=== PATIENT | female | born 1975 | race Caucasian/White ===

== ENCOUNTER 2020-12-31 09:20 | Outpatient (REF) | payer MEDICARE, MEDICAID, SELFPAY ==
--- NOTE | ~2020-12-31 | XR_ITS ---
EXAMINATION: XR SHOULDER , LEFT CLINICAL INFORMATION: Pain COMPARISON: None available at the time of this dictation. TECHNIQUE: AP external rotation, Grashey, scapular Y, and axillary views of the shoulder. FINDINGS: BONES: There is no fracture or dislocation, no osteolytic or osteoblastic lesion. JOINTS: Glenohumeral joint is properly positioned. 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 SOFT TISSUE AND INCLUDED LUNG: Soft tissue calcification adjacent to the humeral head suggesting calcific tendinitis. XR/XR shoulder LT min 2V IMPRESSION: Soft tissue calcification superior to humeral head suggesting calcific tendinitis. Mild DJD AC joint.
== END 2020-12-31 09:21 | disposition home or self-care (01) ==
LOC: HO.XRAY 09:20
PROVIDERS: PCP Pediatrics; Visit Provider Nurse Practitioner Family
DX: M25.512 Pain in left shoulder (principal); M79.18 Myalgia, other site
CPT/HCPCS: 20552; 73030; 99202

== ENCOUNTER 2025-01-08 14:22 | Outpatient (REF) | payer MEDICARE, MEDICAID, SELFPAY ==
--- OUTSIDE RECORDS SUMMARY | 2025-01-08 17:30 | XMS_ITS | Encounter Summary ---
Author Organization [employer] Address [address] [facility] [address] [place] [address] Care Team Providers Care Television Specialist Name Role Phone Kerry Gifford MD Primary Care Provider [phone] Encounter Details Date Type Department Care Team ([facility] Contact Info) Description 2023 Orders Only [facility] MED & PEDS [address] [place] [address] Mady Walters MD [address] [place] [address] Social History Tobacco Use Types Packs/Day Years Used Date Smoking Tobacco: Every Day Cigarettes 0.5 22 Passive Smoke Exposure: Current Smokeless Tobacco: Never Alcohol Use Standard Drinks/Week Comments Never 0 (1 standard drink = 0.6 oz pur e alcohol) Depression Answer Date Recorded Patient Health Questionnaire-9 Score 2 10/13/2022 Depression Answer Date Recorded Patient Health Questionnaire-2 Score 0 10/13/2022 Comments Unknown Sex and Gender Information Value Date Recorded Sex Assigned at Female 08/02/2022 10:17 AM EDT Legal Sex Female 10:17 AM EDT Gender Identity Female 08/02/2022 10:17 AM EDT Sexual Orientation Straight 08/02/2022 10 :17 AM EDT documented as of this encounter Plan of Treatment Upcoming Encounters Date Type Department Care Team ([facility] Contact Info) Description 01/15/2025 2:30 PM EDT Clinical Support [facility] [address] [place] [address] Bettie Hollins, RN 505 [place] [address] 02/26/2025 10:45 AM EDT Office Visit [facility] CHC MED & PEDS [address] [place] [address] Kerry Gifford MD [address] [place] [address] documented as of this encounter Visit Diagnoses Not on filedocumented in this encounter Additional Health Concerns Assessment Noted Time PHQ-9 Depression Total Score: 2 10/13/19 23 9:25 AM EST documented as of this encounter Care Teams Television Specialist Relationship Specialty Start Date End Date Kerry Gifford MD [address] [place] [address] PCP - General Family Medicine 10/03/18 documented as of this encounter
--- OUTSIDE RECORDS SUMMARY | 2025-01-08 17:30 | XMS_ITS | Encounter Summary ---
Author Organization [employer] Address [address] [facility] 7t [place] [address] Care Team Providers Care Gold Miner Name Role Phone Kerry Gifford MD Primary Care Provider [phone] Reason for Visit * Reason Comments Med Refill Encounter Details Date Type Department Care Team ([facility] st Contact Info) Description 01/07/2025 Refill [facility] MED[facility]INE [address] [place] [address] Kerry Gifford MD [address] [place], [place] [phone] Pure hypercholesterolemia Social History Tobacco Use Types Packs/Day Years Used Date Smoking Tobacco: Every Day Cigarettes 0.5 22 Passive Smoke Exposure: Current Smokeless Tobacco: Never Alcohol Use Standard Drinks/Week Comments Never 0 (1 standard drink = 0.6 oz pur e alcohol) Depression Answer Date Recorded Patient Health Questionnaire-9 Score 2 12/29/2023 Patient Health Questionnaire-9 Score 2 12/29/2023 Last PHQ-9: Questionnaire Data Not on file 0 12/29/2023 Housing Stability Answer Date Recorded What is your housing situation today? I have anupam cadet 12/29/[address] you li ve. Do you have problems with any of the following? None of the above 12/29/2023 Food Insecurity Answer Date Recorded Within the past 12 months, y ou worried that your food would run out before you got money to buy more: Never True 12/29/2023 Within the past 12 months,th e food you bought just didn't last and you didn't have enough money to get more: Never True Transportation Answer Date Recorded In the past 12 months, has l ack of transportation kept you from medical appts, meetings, work or from getting things needed for daily living? No 12/29/2023 Utilities Answer Date Recorded In the past 12 months, has t he electric, gas, oil or water company threatened to shut off services in your home? No 12/29/2023 Depression Answer Date Recorded Patient Health Questionnaire-2 Score 0 12/29/2023 Comments Unknown Sex and Gender Information Value Date Recorded Sex Assigned at Female 08/02/2022 10:17 AM EDT Legal Sex Female 10:17 AM EDT Gender Identity Female 08/02/2022 10:17 AM EDT Sexual Orientation Straight 08/02/2022 10 :17 AM EDT documented as of this encounter Plan of Treatment Upcoming Encounters Date Type Department Care Team (Late st Contact Info) Description 01/15/2025 2:30 PM EDT Clinical Support [facility] MED & PEDS [address] [place] [address] Bettie Hollins, WOODY 505 [place] [address] 02/26/2025 10:45 AM EDT Office Visit [facility] MED & PEDS [address] [place] [address] Kerry Gifford MD [address] [place] [address] documented as of this encounter Visit Diagnoses Diagnosis Pure hypercholesterolemia documented in this encounter Additional Health Concerns Assessment Noted Time PHQ-9 Depression Total Score: 2 12/29/19 24 11:00 AM EDT documented as of this encounter Care Teams Gold Miner Relationship Specialty Start Date End Date Kerry Gifford MD [address] [place] [address] PCP - General Family Medicine 10/03/18 documented as of this encounter
--- OUTSIDE RECORDS SUMMARY | 2025-01-08 17:30 | XMS_ITS | Encounter Summary ---
Author Organization [employer] Address [address] [facility] 7t [place] [address] Care Team Providers Care Rn Child Name Role Phone Kerry Gifford MD Primary Care Provider [phone] Reason for Visit * Reason Comments Med Refill Encounter Details Date Type Department Care Team ([facility] Contact Info) Description 01/03/2025 Refill [facility] MED & PEDS [address] [place] [address] Kerry Gifford MD [address] [place] [address] Lumbar disc disease with radiculopathy Social History Tobacco Use Types Packs/Day Years [...] Description 01/15/2025 2:30 PM EDT Clinical Support [facility] MED & PEDS [address] [place] [address] Bettie Hollins, RN [address] [place] [address] 02/26/2025 10:45 AM EDT Office Visit [facility] P[facility] [address] [place] [address] Kerry Gifford MD [address] [place] [address] documented as of this encounter Visit Diagnoses Diagnosis Lumbar disc disease with radiculopathy documented in this encounter Additional Health Concerns Assessment Noted Time PHQ-9 Depression Total Score: 2 12/29/19 24 11:00 AM EDT documented as of this encounter Care Teams Rn Child Relationship Specialty Start Date End Date Kerry Gifford MD [address] [place] [address] PCP - General Family Medicine 10/03/18 documented as of this encounter
--- OUTSIDE RECORDS SUMMARY | 2025-01-08 17:30 | XMS_ITS | Encounter Summary ---
Author Organization [employer] Address [address] [facility] 7 [place] [address] Care Team Providers Care Tourist Information Assistant Name Role Phone Kerry Gifford MD Primary Care Provider [phone] Reason for Visit * Reason Comments Cough Encounter Details Date Type Department Care Team ([facility] Contact Info) Description 01/08/2025 1:45 PM EDT Office Visit [facility] CH[facility] MED & PEDS [address] [place], [place] [phone] Mady Walters MD [address] [place], [place] [phone] Acute cough (Primary Dx) Social History Tobacco Use Types Packs/Day Years [...] AM EDT documented as of this encounter Last Filed Vital Signs Vital Sign Reading Time Taken Comments Blood Pressure 96/64 01/08/2025 1:58 PM EDT Pulse 93 01/08/2025 1:58 PM EDT Temperature 36.1 ??C (97 ??F) 01/08/2025 1:58 PM EDT Respiratory Rate 20 01/08/2025 1:58 PM EDT Oxygen Saturation 96% 01/08/2025 1:58 PM EDT Inhaled Oxygen Concentration - - Weight - - Height - - Body Mass Index - - documented in this encounter Progress Notes * Mady Walters MD - 01/08/2025 1:45 PM EDT Subjective Patient ID: Rozina Hays is a 49 y.o. female who presents for Cough. Cough This is a new problem. The current episode started 1 to 4 weeks ago. The problem has been graduallyworsening. The problem occurs every few minutes. The cough is Productive of brown sputum. Pertinentnegatives include no chest pain, chills, ear congestion, ear pain, fever, headaches, heartburn, hemoptysis, myalgias, nasal congestion, postnasal drip, rash, rhinorrhea, sore throat, shortness of breath, sweats, weight loss or wheezing. Associated with chest tightness. Multiple family members with similar symptoms. Patient is an active smoker. She has not been able to smoke the way she used to because of the cough and shortness of breath. Patient Active Problem List Diagnosis Lumbar disc disease with radiculopathy Kidney stone Hypothyroidism Hyperlipidemia Hypercoagulable state ([facility]) Herpes simplex Depressive disorder Bronchitis Backache Asthma Allergic rhinitis Acquired obstruction of urinary tract Tobacco use disorder, continuous Current Outpatient Medications on File Prior to Visit Medication Sig Dispense Refill atorvastatin (Lipitor) 80 MG tablet TAKE ONE TABLET EVERY MORNING 30 tablet 5 azithromycin (Zithromax) 250 MG tablet Take 2 tabs day and then 1 tab daily 6 tablet 0 benztropine (Cogentin) 2 MG tablet Take 1 tablet by mouth every 12 (twelve) hours. betamethasone dipropionate 0.05 % cream Apply topically 2 times daily. 30 g 3 budesonide (Pulmicort Flexhaler) 180 MCG/ACT inhaler Inhale 1 puff every 12 (twelve) hours. gtkhzyafcg-qqiwudcurjlqp-uvivdjof 50-325-40 MG tablet TAKE ONE OR TWO TABLETS EVERY TWELVE HOURS ASNEEDED, DO NOT EXCEED SIX TABLETS IN 24 HOURS 20 tablet 0 mdvkjpskeh-sfpdphkrrdzdk-auuxtheg 50-325-40 MG tablet TAKE 1 TO 2 TABLETS EVERY 8 HOURS NEEDED FOR HEADACHE 20 tablet 0 Cariprazine HCl (Vraylar) 4.5 MG capsule Take 1 capsule by mouth 1 (one) time each day. take 1 capsule by oral route every day celecoxib (CeleBREX) 100 MG capsule Take 1 capsule orally 2 times a day for pain 60 capsule 0 cetirizine (ZyrTEC) 10 MG tablet TAKE ONE TABLET EVERY MORNING 90 tablet 0 Clobetasol Prop Emollient Base 0.05 % emollient cream Apply topically every 12 (twelve) hours. Dextromethorphan-guaiFENesin (Mucinex DM) 30-600 MG tablet sustained-release 12 hour Use 1 tab TID 28 tablet 0 EPINEPHrine (Epipen) 0.3 MG/0.3ML injection syringe Inject 0.3 mL into the shoulder, thigh, or buttocks. fexofenadine (Christy) 180 MG tablet Take 180 mg by mouth in the morning. gabapentin (Neurontin) 300 MG capsule TAKE ONE CAPSULE THREE TIMES DAILY IN THE MORNING, AT NOON, AND AT BEDTIME NEEDED 90 capsule 0 levothyroxine (Synthroid, Levoxyl) 137 MCG tablet TAKE ONE TABLET EVERY MORNING 90 tablet 0 LORazepam (Ativan) 1 MG tablet take 1 tablet by oral route twice a day as needed Multiple Vitamin (Multi-Vitamin) tablet Take 1 tablet by mouth. naloxone (Narcan) 4 mg/0.1 mL nasal spray Administer 0.1 mL into affected nostril(s). nicotine (Nicoderm, Step 2) 14 MG/24HR patch APPLY 1 PATCH TOPICALLY TO THE SKIN DAILY IN THE MORNING DIRECTED. DO NOT SMOKE WHILE USING PATCH. 30 patch 1 nicotine (Nicoderm, Step 3) 7 MG/24HR patch Place 1 patch on the skin at bed time. nicotine polacrilex (Commit) 4 MG lozenge Dissolve 1 lozenge (4 mg) in the mouth every 2 (two) hours if needed for smoking cessation. 100 lozenge 0 omeprazole (PriLOSEC) [address] capsule TAKE ONE CAPSULE IN THE MORNING AND EVENING 180 capsule 0 oxybutynin XL (Ditropan-XL) 10 MG 24 hr tablet TAKE ONE TABLET EVERY MORNING 30 tablet 11 oxyCODONE (Roxicodone) 15 MG immediate release tablet Take 1 tablet (15 mg) by mouth every 8 (eight) hours if needed (Every 8 hours PRN). Do not start before January 04, 2025. tablet 0 pseudoephedrine (Sudafed) 30 MG tablet Take 1 tablet by mouth every 6 (six) hours. varenicline (Chantix) 0.5 MG tablet TAKE 1 TABLET BY MOUTH TWICE DAILY WITH GLASS OF WATER 60 tablet 0 Ventolin HFA 108 (90 Base) MCG/ACT inhaler INHALE 2 PUFFS BY MOUTH EVERY 4-6 HOURS NEEDED 18 g 2 [DISCONTINUED] atorvastatin (Lipitor) 80 MG tablet TAKE ONE TABLET EVERY MORNING 30 tablet 5 [DISCONTINUED] cetirizine (ZyrTEC) 10 MG tablet TAKE ONE TABLET EVERY MORNING 90 tablet 0 [DISCONTINUED] oxyCODONE (Roxicodone) 15 MG immediate release tablet Take 1 tablet (15 mg) by mouthevery 8 (eight) hours if needed (Every 8 hours PRN). Do not start before December 07, 2024. 84 tablet 0 No current facility-administered medications on file prior to visit. Allergies Allergen Reactions Iodinated Contrast Media Shortness of breath Acetaminophen Ciprofloxacin Other reaction(s): Hives / Skin Rash Other reaction(s): rash, swelling Doxycycline Other reaction(s): Vomiting Morphine Hives Other reaction(s): Hives / Skin Rash Shellfish Allergy Wound Dressings Other reaction(s): marie skin Review of Systems Constitutional: Negative for chills, fever and weight loss. HENT: Negative for ear pain, postnasal drip, rhinorrhea and sore throat. Respiratory: Positive for cough. Negative for hemoptysis, shortness of breath and wheezing. Cardiovascular: Negative for chest pain. Gastrointestinal: Negative for heartburn. Musculoskeletal: Negative for myalgias. Skin: Negative for rash. Neurological: Negative for headaches. Objective BP 96/64 (BP Location: Left arm, Patient Position: Sitting, BP Cuff Size: Adult) Pulse 93 Temp 97 ??F (36.1 ??C) (Oral) Resp 20 SpO2 96% Physical Exam Constitutional: General: She is not in acute distress. Appearance: Normal appearance. She is not ill-appearing, toxic-appearing or diaphoretic. Cardiovascular: Rate and Rhythm: Normal rate. Pulmonary: Breath sounds: Decreased air movement present. Wheezing and rhonchi present. Neurological: Mental Status: She is alert. Assessment/Plan Diagnoses and all orders for this visit: Acute cough Comments: Possible bronchitis in a smoker Smoking cessation recommended Medication as directed Increase fluid intake. Orders: - POCT Rapid Covid-19 BinaxNOW - POCT Rapid Influenza A OSOM - POCT Rapid Influenza B OSOM - XR Chest 2 Views; Future - azithromycin (Zithromax) 250 MG tablet; 500 mg on day 1, 250 mg day 2 through 5 - predniSONE (Deltasone) 20 MG tablet; Take 2 tablets (40 mg) by mouth Once per day for 5 days. - guaiFENesin (Mucinex) 600 MG 12 hr tablet; Take 2 tablets (1,200 mg) by mouth 2 times daily. Do not crush, chew, or split. - CBC auto differential; Future documented in this encounter Plan of Treatment Upcoming Encounters Date Type Department Care Team (Late st Contact Info) Description 01/15/2025 2:30 PM EDT Clinical Support [facility] MED & PEDS [address] [place] [address] Bettie Hollins RN [address] [place] [address] 02/26/2025 10:45 AM EDT Office Visit [facility] CH[facility] MED & PEDS [address] [place] [address] Kerry Gifford MD [address] [place] [address] Scheduled Orders Name Type Priority Associated Diagnoses Orde r Schedule XR Chest 2 Views Imaging Routine Acute cough Expected: 01/08/2025, Expires: 01/08/2026 CBC auto differential Lab Routine Acute cough Expected: 01/08/2025 (Approximate), Expires: 01/08/2026 documented as of this encounter Procedures Procedure Name Priority Date/Time Associated Diagnosis Comments POCT RAPID COVID ANTIGEN Routine 01/08/2025 3:26 PM EDT Acute cough POCT INFLUENZA A Routine 01/08/2025 3:25 PM EDT Acute cough POCT INFLUENZA B Routine 01/08/2025 3:24 PM EDT Acute cough documented in this encounter Results * POCT Rapid Covid-19 BinaxNOW (01/08/2025 3:26 PM EDT) Rapid COVID Ag Negative QC Media Lot # [id number] Lot# Expiration Date [id number] Swab 01/08/2025 3:26 PM EDT Mady Walters MD POINT OF CARE TEST ENTER/ED IT ORDERABLES Final Result * POCT Rapid Influenza A OSOM (01/08/2025 3:25 PM EDT) Rapid Influenza A Ag Negative Negative, Indeterminate QC Media Lot # [id number] Lot# Expiration Date [id number] Comment:controls passed Swab Nasopharyngeal structure / Unknown 01/08/2025 3:25 PM EDT Mady Walters MD POINT OF CARE TEST ENTER/ED IT ORDERABLES Final Result * POCT Rapid Influenza B OSOM (01/08/2025 3:24 PM EDT) Rapid Influenza B Ag Negative Negative, Indeterminate QC Media Lot # [id number] Lot# Expiration Date [id number] Comment:controls passed Swab 01/08/2025 3:24 PM EDT Mady Walters MD POINT OF CARE TEST ENTER/ED IT ORDERABLES Final Result documented in this encounter Visit Diagnoses Diagnosis Acute cough- Primary documented in this encounter Additional Health Concerns Assessment Noted Time PHQ-9 Depression Total Score: 2 12/29/19 24 11:00 AM EDT documented as of this encounter Care Teams Tourist Information Assistant Relationship Specialty Start Date End Date Kerry Gifford MD [address] [place] [address] PCP - General Family Medicine 10/03/18 documented as of this encounter
--- OUTSIDE RECORDS SUMMARY | 2025-01-08 17:30 | XMS_ITS | Encounter Summary ---
Author Organization [employer] Address [address] [facility] 7 [place] [address] Care Team Providers Care Capital Markets Specialist Name Role Phone Kerry Gifford MD Primary Care Provider [phone] Encounter Details Date Type Department Care Team (Late st Contact Info) Description 02/22/2023 Orders Only [facility] CHC MED & PEDS [address] [place], [place] [phone] Kerry Gifford MD [address] [place] [address] Social History Tobacco Use Types Packs/Day Years Used Date Smoking Tobacco: Every Day Cigarettes 0.5 22 Alcohol Use Standard Drinks/Week Comments Never 0 [...] Orientation Straight 08/02/2022 10 :17 AM EDT COVID-19 Exposure Response Date Recorded In the last 10 days, have yo u been in contact with someone who was confirmed or suspected to have Coronavirus/COVID-19? No / Unsure 02/18/2023 8:53 AM EDT documented as of this encounter Plan of Treatment Upcoming Encounters Date Type Department Care Team (Late st Contact Info) Description 01/15/2025 2:30 PM EDT Clinical Support [facility] & PEDS [address] [place] [address] Bettie Hollins, RN [address] [place] [address] 02/26/2025 10:45 AM EDT Office Visit [facility] PED[facility] [address] [place] [address] Kerry Gifford MD [address] [place] [address] documented as of this encounter Visit Diagnoses Not on filedocumented in this encounter Additional Health Concerns Assessment Noted Time PHQ-9 Depression Total Score: 2 10/13/19 23 9:25 AM EST documented as of this encounter Care Teams Capital Markets Specialist Relationship Specialty Start Date End Date Kerry Gifford MD [address] [place] [address] PCP - General Family Medicine 10/03/18 documented as of this encounter
--- OUTSIDE RECORDS SUMMARY | 2025-01-08 17:30 | XMS_ITS | Encounter Summary ---
Author Organization [employer] Address [address] [facility] 7t [place] [address] Care Team Providers Care Construction Engineer Name Role Phone Kerry Gifford MD Primary Care Provider [phone] Reason for Visit * Reason Comments Med Refill Encounter Details Date Type Department Care Team ([facility] st Contact Info) Description 10/11/2024 Refill [facility] MEDICINE [address] [place] [address] Kerry Gifford MD [address] [facility] [address] [place], [place] [phone] Chronic pain syndrome Social History Tobacco Use Types Packs/Day Years [...] Description 01/15/2025 2:30 PM EDT Clinical Support [facility] MED & PEDS [address] [place] [address] Bettie Hollins, WOODY [address] [place] [address] 02/26/2025 10:45 AM EDT Office Visit [facility] MED & PEDS [address] [place] [address] Kerry Gifford MD [address] [place] [address] documented as of this encounter Visit Diagnoses Diagnosis Chronic pain syndrome documented in this encounter Additional Health Concerns Assessment Noted Time PHQ-9 Depression Total Score: 2 12/29/19 24 11:00 AM EDT documented as of this encounter Care Teams Construction Engineer Relationship Specialty Start Date End Date Kerry Gifford MD [address] [place] [address] PCP - General Family Medicine 10/03/18 documented as of this encounter
--- OUTSIDE RECORDS SUMMARY | 2025-01-08 17:30 | XMS_ITS | Encounter Summary ---
Author Organization [employer] Address [address] [facility] 7 [place] [address] Care Team Providers Care Pipe Organ Mechanic Name Role Phone Kerry Gifford MD Primary Care Provider Reason for Visit * Reason Onset Date Comments Med Refill 01/02/2025 Encounter Details Date Type Department Care Team (Late st Contact Info) Description 01/02/2025 Refill [facility] MEDICINE [address] [place] [address] Kerry Gifford MD [address] [facility] [address] [place], [place] [phone] Lumbar disc disease with radiculopathy Social History [...] AM EDT documented as of this encounter Miscellaneous Notes * Telephone Encounter - Cody Rutherford - 01/02/2025 4:27 PM EDT TC from pt requesting medication refill. Medications needing refill : oxyCODONE (Roxicodone) 15 MG immediate release tablet To be sent to: [facility] documented in this encounter Plan of Treatment Upcoming Encounters Date Type Department Care Team ([facility] st Contact Info) Description 01/15/2025 2:30 PM EDT Clinical Support [facility] MED & PEDS [address] [place] [address] Bettie Hollins RN [address] [place] [address] 02/26/2025 10:45 AM EDT Office Visit [facility] MED & PEDS [address] [place] [address] Kerry Gifford MD [address] [place] [address] documented as of this encounter Visit Diagnoses Diagnosis Lumbar disc disease with radiculopathy documented in this encounter Additional Health Concerns Assessment Noted Time PHQ-9 Depression Total Score: 2 12/29/19 24 11:00 AM EDT documented as of this encounter Care Teams Pipe Organ Mechanic Relationship Specialty Start Date End Date Kerry Gifford MD [address] [place] [address] PCP - General Family Medicine 10/03/18 documented as of this encounter
--- OUTSIDE RECORDS SUMMARY | 2025-01-08 17:30 | XMS_ITS | Encounter Summary ---
Author Organization [employer] Address [address] [facility] [address] [place] [address] Care Team Providers Care Allergist/Md Name Role Phone Kerry Gifford MD Primary Care Provider [phone] Encounter Details Date Type Department Care Team (Latest Contact Info) Description 01/08/2025 Travel Social History Tobacco Use Types Packs/Day Years [...] Description 01/15/2025 2:30 PM EDT Clinical Support [facility] MED & PEDS [address] [place] [address] Bettie Hollins RN [address] [place] [address] 02/26/2025 10:45 AM EDT Office Visit [facility] MED & PEDS [address] [place] [address] Kerry Gifford MD [address] [place] [address] documented as of this encounter Visit Diagnoses Not on filedocumented in this encounter Additional Health Concerns Assessment Noted Time PHQ-9 Depression Total Score: 2 12/29/19 24 11:00 AM EDT documented as of this encounter Care Teams Allergist/Md Relationship Specialty Start Date End Date Kerry Gifford MD [address] [place] [address] PCP - General Family Medicine 10/03/18 documented as of this encounter
--- OUTSIDE RECORDS SUMMARY | 2025-01-08 17:30 | XMS_ITS | Encounter Summary ---
Author Organization [employer] Address [address] [facility] 7[address] [place] [address] Care Team Providers Care Controls Engineer Name Role Phone Kerry Gifford MD Primary Care Provider [phone] Reason for Visit * Reason Comments Med Refill Encounter Details Date Type Department Care Team ([facility] st Contact Info) Description 10/16/2024 Refill [facility] MEDICINE [address] [place] [address] Kerry Gifford MD [address] [place], [place] [phone] Chronic pain syndrome Social History Tobacco Use [...] Description 01/15/2025 2:30 PM EDT Clinical Support [facility] PEDS [address] [place] [address] Bettie Hollins, WO[place] [address] [place] [address] 02/26/2025 10:45 AM EDT Office Visit [facility] [address] [place] [address] Kerry Gifford MD [address] [place] [address] documented as of this encounter Visit Diagnoses Diagnosis Chronic pain syndrome documented in this encounter Additional Health Concerns Assessment Noted Time PHQ-9 Depression Total Score: 2 12/29/19 24 11:00 AM EDT documented as of this encounter Care Teams Controls Engineer Relationship Specialty Start Date End Date Kerry Gifford MD [address] [place] [address] PCP - General Family Medicine 10/03/18 documented as of this encounter
--- OUTSIDE RECORDS SUMMARY | 2025-01-08 17:30 | XMS_ITS | Encounter Summary ---
Author Organization [employer] Address [address] [facility] 7 [place] [address] Care Team Providers Care Rfid Manager Name Role Phone Kerry Gifford MD Primary Care Provider [phone] Reason for Visit * Reason Onset Date Comments Appointment Request 05/28/2024 Encounter Details Date Type Department Care Team ([facility] st Contact Info) Description 05/28/2024 Telephone [facility] MEDICINE [address] [place] [address] Kerry Gifford MD [address] [place], [place] [phone] Appointment Request Social History Tobacco Use Types Packs/Day Years [...] encounter Miscellaneous Notes * Telephone Encounter - Juan Elliott - 05/28/2024 11:51 AM EDT Tc from patient calling to cancel appt for 06/08 and would like a call back to reschedule documented in this encounter Plan of Treatment Upcoming Encounters Date Type Department Care Team ([facility] st Contact Info) Description 01/15/2025 2:30 PM EDT Clinical Support [facility] MED & PEDS [address] [place] [address] Bettie Hollins, RN [address] [place] [address] 02/26/2025 10:45 AM EDT Office Visit [facility] MED & PED[facility] [address] [place] [address] Kerry Gifford MD [address] [place] [address] documented as of this encounter Visit Diagnoses Not on filedocumented in this encounter Additional Health Concerns Assessment Noted Time PHQ-9 Depression Total Score: 2 12/29/19 24 11:00 AM EDT documented as of this encounter Care Teams Rfid Manager Relationship Specialty Start Date End Date Kerry Gifford MD [address] [place] [address] PCP - General Family Medicine 10/03/18 documented as of this encounter
--- OUTSIDE RECORDS SUMMARY | 2025-01-08 17:30 | XMS_ITS | Encounter Summary ---
Author Organization [employer] Address [address] [address] Care Team Providers Care Computer Numeric Control Setter Name Role Phone Kerry Gifford MD Primary Care Provider [phone] Reason for Visit * Reason Onset Date Comments Med Refill 06/13/2023 Encounter Details Date Type Department Care Team ([facility] st Contact Info) Description 06/13/2023 Telephone [facility] PEDS [address] [place] [address] Kerry Gifford MD [address] [place], [place] [phone] Med Refill Social History Tobacco Use Types Packs/Day Years [...] encounter Miscellaneous Notes * Telephone Encounter - Alaina Batres - 06/13/2023 12:18 PM EDT Tc from pt requesting med refill for medication oxyCODONE (Roxicodone) 15 MG immediate release tablet. documented in this encounter Plan of Treatment Upcoming Encounters Date Type Department Care Team ([facility] st Contact Info) Description 01/15/2025 2:30 PM EDT Clinical Support [facility]EDS [address] [place] [address] Bettie Hollins, WO[place] [address] [place] [address] 02/26/2025 10:45 AM EDT Office Visit [facility] [address] [place] [address] Kerry Gifford MD [address] [place] [address] documented as of this encounter Visit Diagnoses Not on filedocumented in this encounter Additional Health Concerns Assessment Noted Time PHQ-9 Depression Total Score: 2 10/13/19 23 9:25 AM EST documented as of this encounter Care Teams Computer Numeric Control Setter Relationship Specialty Start Date End Date Kerry Gifford MD [address] [place] [address] PCP - General Family Medicine 10/03/18 documented as of this encounter
--- OUTSIDE RECORDS SUMMARY | 2025-01-08 17:30 | XMS_ITS | Encounter Summary ---
Author Organization [employer] Address [address] [facility] 7 [place] [address] Care Team Providers Care Director External Communications Name Role Phone Kerry Gifford MD Primary Care Provider [phone] Reason for Visit * Reason Onset Date Comments Med Refill 12/05/2024 Encounter Details Date Type Department Care Team ([facility] st Contact Info) Description 12/05/2024 Telephone [facility] MEDICINE [address] [place] [address] Kerry Gifford MD [address] [place], [place] [phone] Med Refill Social History Tobacco Use Types [...] encounter Miscellaneous Notes * Telephone Encounter - Ivan Barros - 12/05/2024 11:47 AM EST TC from pt requesting medication refill. Medications needing refill : oxyCODONE (Roxicodone) 15 MG immediate release tablet To be sent to: [facility] - [address] documented in this encounter Plan of Treatment Upcoming Encounters Date Type Department Care Team ([facility] st Contact Info) Description 01/15/2025 2:30 PM EDT Clinical Support [facility] MED & PEDS [address] [place] [address] Bettie Hollins RN [address] [place] [address] 02/26/2025 10:45 AM EDT Office Visit [facility] MED & PEDS [address] [place] [address] Kerry Gifford MD 505 [place] [address] documented as of this encounter Visit Diagnoses Not on filedocumented in this encounter Additional Health Concerns Assessment Noted Time PHQ-9 Depression Total Score: 2 12/29/19 24 11:00 AM EDT documented as of this encounter Care Teams Director External Communications Relationship Specialty Start Date End Date Kerry Gifford MD [address] [place] [address] PCP - General Family Medicine 10/03/18 documented as of this encounter
--- OUTSIDE RECORDS SUMMARY | 2025-01-08 17:30 | XMS_ITS | Encounter Summary ---
Author Organization [employer] Address [address] [facility] 7t [place] [address] Care Team Providers Care General Lot Attendant Name Role Phone Kerry Gifford MD Primary Care Provider Reason for Visit * Reason Comments Med Refill Encounter Details Date Type Department Care Team ([facility] Contact Info) Description 01/04/2025 Refill [facility]EDS [address] [place] [address] Mady Walters MD [address] [place] [address] Mild persistent asthma without complication Social History Tobacco Use Types Packs/Day Years [...] 01/15/2025 2:30 PM EDT Clinical Support [facility] MED & PEDS [address] [place] [address] Bettie Hollins, RN [address] [place] [address] 02/26/2025 10:45 AM EDT Office Visit [facility] PED[facility] [address] [place] [address] Kerry Gifford MD [address] [place] [address] documented as of this encounter Visit Diagnoses Diagnosis Mild persistent asthma without complication documented in this encounter Additional Health Concerns Assessment Noted Time PHQ-9 Depression Total Score: 2 12/29/19 24 11:00 AM EDT documented as of this encounter Care Teams General Lot Attendant Relationship Specialty Start Date End Date Kerry Gifford MD [address] [place] [address] PCP - General Family Medicine 10/03/18 documented as of this encounter
--- OUTSIDE RECORDS SUMMARY | 2025-01-08 17:30 | XMS_ITS | Encounter Summary ---
Author Organization [employer] Address [address] [facility] 7 [place] [address] Care Team Providers Care Legislative Aide Name Role Phone Kerry Gifford MD Primary Care Provider Reason for Visit * Reason Onset Date Comments Appointment Request 12/24/2024 Encounter Details Date Type Department Care Team ([facility] st Contact Info) Description 12/24/2024 Telephone [facility] MEDICINE [address] [place] [address] Kerry Gifford MD [address] [place], [place] [phone] Appointment Request Social History Tobacco Use Types [...] encounter Miscellaneous Notes * Telephone Encounter - Marybel Acharya - 12/24/2024 10:00 AM EDT Tc from pt requesting new appointment as cancelled previous one. Please return call to [phone] documented in this encounter Plan of Treatment Upcoming Encounters Date Type Department Care Team ([facility] st Contact Info) Description 01/15/2025 2:30 PM EDT Clinical Support [facility] MED & PEDS [address] [place] [address] Bettie Hollins, RN [address] [place] [address] 02/26/2025 10:45 AM EDT Office Visit [facility] MED & PEDS [address] [place] [address] Kerry Gifford MD [address] [place] [address] documented as of this encounter Visit Diagnoses Not on filedocumented in this encounter Additional Health Concerns Assessment Noted Time PHQ-9 Depression Total Score: 2 12/29/19 11:00 AM EDT documented as of this encounter Care Teams Legislative Aide Relationship Specialty Start Date End Date Kerry Gifford MD [address] [place] [address] PCP - General Family Medicine 10/03/18 documented as of this encounter
--- OUTSIDE RECORDS SUMMARY | 2025-01-08 17:30 | XMS_ITS | Encounter Summary ---
Author Organization [employer] Address [address] [facility] 7 [place] [address] Care Team Providers Care Credit Control Administrator Name Role Phone Kerry Gifford MD Primary Care Provider [phone] Reason for Visit * Reason Onset Date Comments Nurse Triage 01/08/2025 Encounter Details Date Type Department Care Team ([facility] st Contact Info) Description 01/08/[address] [facility] MEDICINE [address] [place] [address] Kerry Gifford MD [address] [place], [place] [phone] Nurse Triage Social History Tobacco Use Types Packs/Day Years [...] encounter Miscellaneous Notes * Telephone Encounter - Loly Willson LPN - 01/08/2025 9:01 AM EDT Triage call returned to patient who reports that she started with cough last Tuesday. Has not been seen in [facility] has hot flashes no recorded fever, no ST or EA. Cough is productive of yellow green phlegm and patient is using previously prescribed inhaler for wheezing. Disposition reviewed no PCP apptavailable ASK/ today at 145pm. Protocol Used: Cough (Adult) Protocol-Based Disposition: Go to Office or Video Visit Now Video visit not offered Positive Triage Question: * Wheezing is present * All higher-acuity triage questions were negative Care Advice Discussed: * Prevent Dehydration * Reasons To Call Back - Difficulty breathing - You become worse * Telephone Encounter - Ivan Barros - 01/08/2025 8:50 AM EDT Symptoms: Cough, Chest Congestion Outcome: Schedule an urgent appointment (within 1 hour) or talk to a nurse or provider soon Reason: Wheezing (high-pitched whistling sound) The caller accepted this outcome. Contact pt at [phone] documented in this encounter Plan of Treatment Upcoming Encounters Date Type Department Care Team (Late st Contact Info) Description 01/15/2025 2:30 PM EDT Clinical Support [facility] MED & PEDS [address] [place] [address] Bettie Hollins RN [address] [place] [address] 02/26/2025 10:45 AM EDT Office Visit [facility] MED [facility] PEDS [address] [place] [address] Kerry Gifford MD [address] [place] [address] documented as of this encounter Visit Diagnoses Not on filedocumented in this encounter Additional Health Concerns Assessment Noted Time PHQ-9 Depression Total Score: 2 12/29/19 24 11:00 AM EDT documented as of this encounter Care Teams Credit Control Administrator Relationship Specialty Start Date End Date Kerry Gifford MD [address] [place] [address] PCP - General Family Medicine 10/03/18 documented as of this encounter
--- OUTSIDE RECORDS SUMMARY | 2025-01-08 17:30 | XMS_ITS | Clinical Summary ---
Author Organization [employer] Address [address] [facility] 7[address] [place] [address] Care Team Providers Care Dev Ops Engineer Name Role Phone Kerry Gifford MD Primary Care Provider [phone] Allergies Active Allergy Reactions Criticality Noted Date Comments Acetaminophen 03/09/2023 Ciprofloxacin 06/01/2013 Other reaction(s): Hives / Skin Rash Other reaction(s): rash, swelling Doxycycline 07/28/2012 Other reaction(s): Vomiting Iodinated Contrast Media Shortness of breath High Morphine Hives 02/01/2012 Other reaction(s): Hives / Skin Rash Shellfish Allergy 03/09/2023 Wound Dressings 03/09/2023 Other reaction(s): marie skin Medications benztropine (Cogentin) 2 MG tablet Take 1 tablet by mouth every 12 (twelve) hours. Active budesonide (Pulmicort Flexhaler) 180 MCG/ACT inhaler Inhale 1 puff every 12 (twelve) hours. Active Cariprazine HCl (Vraylar) 4.5 MG capsule Take 1 capsule by mouth 1 (one) time each day. take 1 capsule by oral route every day Active Clobetasol Prop Emollient Base 0.05 % emollient cream Apply topically every 12 (twelve) hours. Active EPINEPHrine (Epipen) 0.3 MG/0.3ML injection syringe Inject 0.3 mL into the shoulder, thigh, or buttocks. Active LORazepam (Ativan) 1 MG tablet take 1 tablet by oral route twice a day as needed Active Multiple Vitamin (Multi-Vitamin) tablet Take 1 tablet by mouth. Active naloxone (Narcan) 4 mg/0.1 mL nasal spray Administer 0.1 mL into affected nostril(s). Active nicotine (Nicoderm, Step 3) 7 MG/24HR patch Place 1 patch on the skin at bed time. Active pseudoephedrine (Sudafed) 30 MG tablet Take 1 tablet by mouth every 6 (six) hours. Active Ventolin HFA 108 (90 Base) MCG/ACT inhalerIndications:Mil d persistent asthma without complication INHALE 2 PUFFS BY MOUTH EVERY 4-6 HOURS NEEDED 18 g 2 023 Active fexofenadine (Christy) 180 MG tablet Take 180 mg by mouth in the morning. Active nicotine polacrilex (Commit) 4 MG lozenge Dissolve 1 lozenge (4 mg) in the mouth every 2 (two) hours if needed for smoking cessation. 100 lozenge Active betamethasone dipropionate 0.05 % cream Apply topically 2 times daily. 30 g 3 023 Active azithromycin (Zithromax) 250 MG tablet Take 2 tabs day and then 1 tab daily 6 tablet Active Dextromethorphan-guaiF ENesin (Mucinex DM) 30-600 MG tablet sustained-release 12 hour Use 1 tab TID 28 tablet Active varenicline (Chantix) 0.5 MG tablet TAKE 1 TABLET BY MOUTH TWICE DAILY WITH GLASS OF WATER 60 tablet Active butalbital-acetaminoph en-caffeine 50-325-40 MG tabletIndications:Safety Lamp Keeper ailyn migraine without aura without status migrainosus, not intractable TAKE ONE OR TWO TABLETS EVERY TWELVE HOURS NEEDED, DO NOT EXCEED SIX TABLETS IN 24 HOURS 20 tablet Active celecoxib (CeleBREX) 100 MG capsule Take 1 capsule orally 2 times a day for pain 60 capsule Active nicotine (Nicoderm, Step 2) 14 MG/24HR patch APPLY 1 PATCH TOPICALLY TO THE SKIN DAILY IN THE MORNING DIRECTED. DO NOT SMOKE WHILE USING PATCH. 30 patch 1 024 Active oxybutynin XL (Ditropan-XL) 10 MG 24 hr tablet TAKE ONE TABLET EVERY MORNING 30 tablet 11 025 Active butalbital-acetaminoph en-caffeine 50-325-40 MG tablet TAKE 1 TO 2 TABLETS EVERY 8 HOURS NEEDED FOR HEADACHE 20 tablet 025 Active omeprazole (PriLOSEC) [address] capsuleIndications:Non -seasonal allergic rhinitis due to other allergic trigger TAKE ONE CAPSULE IN THE MORNING AND EVENING 180 capsule 025 Active gabapentin (Neurontin) 300 MG capsuleIndications:Chr onic pain syndrome TAKE ONE CAPSULE THREE TIMES DAILY IN THE MORNING, AT NOON, AND AT BEDTIME NEEDED 90 capsule 025 Active levothyroxine (Synthroid, Levoxyl) 137 MCG tabletIndications:Acqu ired hypothyroidism TAKE ONE TABLET EVERY MORNING 90 tablet 025 Active oxyCODONE (Roxicodone) 15 MG immediate release tabletIndications:Lumb ar disc disease with radiculopathy Take 1 tablet (15 mg) by mouth every 8 (eight) hours if needed (Every 8 hours PRN). Do not start before January 04, 2025. 84 tablet 025 Active cetirizine (ZyrTEC) 10 MG tabletIndications:Mild persistent asthma without complication TAKE ONE TABLET EVERY MORNING 90 tablet 025 Active atorvastatin (Lipitor) 80 MG tabletIndications:Pure hypercholesterolemia TAKE ONE TABLET EVERY MORNING 30 tablet 5 025 Active azithromycin (Zithromax) 250 MG tabletIndications:Acut e cough 500 mg on day 1, 250 mg day 2 through 5 6 tablet Active predniSONE (Deltasone) 20 MG tabletIndications:Acut e cough Take 2 tablets (40 mg) by mouth Once per day for 5 days. 10 tablet 025 01/13 Active guaiFENesin (Mucinex) 600 MG 12 hr tabletIndications:Acut e cough Take 2 tablets (1,200 mg) by mouth 2 times daily. Do not crush, chew, or split. 120 tablet 11 025 01/08 Active atorvastatin (Lipitor) 80 MG tabletIndications:Pure hypercholesterolemia TAKE ONE TABLET EVERY MORNING 30 tablet 5 024 01/07 Discontinued omeprazole (PriLOSEC) [address] capsuleIndications:Non -seasonal allergic rhinitis due to other allergic trigger TAKE ONE CAPSULE IN THE MORNING AND EVENING 180 capsule 024 12/14 Discontinued cetirizine (ZyrTEC) 10 MG tabletIndications:Mild persistent asthma without complication TAKE ONE TABLET EVERY MORNING 90 tablet 025 01/07 Discontinued levothyroxine (Synthroid, Levoxyl) 137 MCG tabletIndications:Acqu ired hypothyroidism TAKE ONE TABLET EVERY MORNING 90 tablet 025 12/14 Discontinued gabapentin (Neurontin) 300 MG capsuleIndications:Chr onic pain syndrome TAKE ONE CAPSULE THREE TIMES DAILY IN THE MORNING, AT NOON, AND AT BEDTIME NEEDED 90 capsule 025 12/14 Discontinued oxyCODONE (Roxicodone) 15 MG immediate release tabletIndications:Lumb ar disc disease with radiculopathy Take 1 tablet (15 mg) by mouth every 8 (eight) hours if needed (Every 8 hours PRN). Do not start before December 07, 2024. 84 tablet 025 01/02 Discontinued( Reorder (will not trigger notification to Pharmacy)) Active Problems Problem Noted Date Diagnosed Date Tobacco use disorder, continuous 05/11/2023 Hyperlipidemia 05/27/2017 Acquired obstruction of urinary tract 01/14/2017 Hypercoagulable state 01/21/2016 Herpes simplex 06/04/2014 Lumbar disc disease with radiculopathy 3 Bronchitis 10/05/2012 Kidney stone 05/31/2012 Hypothyroidism 02/18/2012 Depressive disorder 02/18/2012 Backache 02/18/2012 Allergic rhinitis 02/18/2012 Asthma 02/01/2012 Encounters Date Type Department Care Team Description 01/08/2025 1:45 PM EDT Office Visit [facility] [address] [place] [address] Mady Walters MD Acute cough (Primary Dx) 01/08/2025 Travel 01/08/2025 Telephone [facility] [address] [place] [address] Kerry Gifford MD Nurse Triage 01/07/2025 Refill [facility] [address] [place] [address] Kerry Gifford MD Pure hypercholesterolemia 01/04/2025 Refill [facility] [address] [place] [address] Mady Walters MD Mild persistent asthma without complication 01/03/2025 Refill [facility] [address] [place] [address] Kerry Gifford MD Lumbar disc disease with radiculopathy 01/02/2025 Refill [facility] [address] [place] [address] Kerry Gifford MD Lumbar disc disease with radiculopathy 12/24/2024 Travel 12/24/2024 Telephone [facility] [address] [place] [address] Bettie Hollins, RN intensive care nurse 12/24/2024 Telephone [facility] [address] [place] [phone] Kerry Gifford MD Appointment Request 12/13/2024 Refill [facility] [address] [place] [phone] Kerry Gifford MD Non-seasonal allergic rhinitis due to other allergic trigger; Chronic pain syndrome; Acquired hypothyroidism 12/05/2024 Refill [facility] [address] [place] [address] Bettie Hollins, RN Lumbar disc disease with radiculopathy 12/05/2024 Refill [facility] [address] [place] [phone] Kerry Gifford MD 12/05/2024 Telephone [facility] [address] [place] [phone] Kerry Gifford MD Med Refill 11/09/2024 Refill [facility] [address] [place] [address] Bob Landa MD Acquired hypothyroidism; Chronic pain syndrome 11/07/2024 Refill [facility] [address] [place] [address] Kerry Gifford MD Lumbar disc disease with radiculopathy 11/05/2024 Refill [facility] [address] [place] [address] Kerry Gifford MD 10/30/2024 9:00 AM EST Telemedicine [facility] [address] [place] [address] Kerry Gifford MD Postoperative hypothyroidism (Primary Dx); Mixed hyperlipidemia; Dietary counseling; Exercise counseling; Depressive disorder; Tobacco use disorder, continuous 10/30/2024 Travel 10/17/2024 Orders Only [facility] [address] [place] [address] Bob Landa MD Chronic pain syndrome 10/16/2024 Refill [facility] [address] [place] [address] Kerry Gifford MD Chronic pain syndrome 10/11/2024 Refill [facility] [address] [place] [address] Kerry Gifford MD Chronic pain syndrome 10/10/2024 Refill [facility] [address] [place] [address] Kerry Gifford MD Lumbar disc disease with radiculopathy 10/10/2024 Refill [facility] [address] [place] [address] Kerry Gifford MD Mild persistent asthma without complication from Last 3 Months Immunizations Name Administration Dates Next Due Influenza Injectable Quadriv alant Preservative Free IIV4 MDCK 06/19/2023,06/29/2022 Influenza injectable quadriv alent IIV4 with preservative 07/24/2019,07/17/2018,07/06/2016,07/09 Influenza injectable quadriv alent preservative free 07/21/2021,07/22/2020,07/21/2017 Influenza, IIV3, injectable 06/12/2014 Influenza, Split (incl. queta fied surface antigen) 07/11/2013,05/31/2012 Pfizer Covid-19 Vaccine 12+ 06/21/2023,0 01/26/2022,05/19/2021,01/02,12/17/2020 Pfizer Covid-19 Vaccine 12+ myke-sucrose (Palomo Cap) 01/26/2022 Pneumococcal Polysaccharide PPSV23 11/04/2015,,10/03/2009 Tdap 01/11/2022,03/05/2010 Social History Tobacco Use Types Packs/Day Years [...] is your housing situation today? I have anupamgarett cadet 12/29/[address] you [...] Orientation Straight 08/02/2022 10 :17 AM EDT Last Filed Vital Signs Vital Sign Reading Time Taken Comments Blood Pressure 96/64 01/08/2025 1:58 PM EDT Pulse 93 01/08/2025 1:58 PM EDT Temperature 36.1 ??C (97 ??F) 01/08/2025 1:58 PM EDT Respiratory Rate 20 01/08/2025 1:58 PM EDT Oxygen Saturation 96% 01/08/2025 1:58 PM EDT Inhaled Oxygen Concentration - - Weight 80.7 kg (178 lb) 04/18/2024 8:49 AM EDT Height 158.8 cm (5' 2.5 ) 04/18/2024 8:49 AM EDT Body Mass Index 32.04 04/18/2024 8:49 AM EDT Plan of Treatment Upcoming Encounters Date Type Department Care Team (Late st Contact Info) Description 01/15/2025 2:30 PM EDT Clinical Support [facility] [address] [place] [address] Bettie Hollins, WOODY [address] [place] [address] 02/26/2025 10:45 AM EDT Office Visit [facility] [address] [place] [address] Kerry Gifford MD [address] [place] [address] Health Maintenance Due Date Last Done Comments CT Colonography 1976 Colonoscopy 1976 Colorectal Cancer Screening 1976 FIT DNA/Cologuard 1976 FIT 1976 FOBT 1976 HIV Screening 1976 Sigmoidoscopy 1976 Alcohol/Substance Use Screening 1988 Family Planning (PISQ) 1991 Hepatitis C Screening 1994 Hepatitis B Vaccines (1 of 3 - 19+ 3-dose series) 1995 Pneumococcal Vaccine: Pediatrics (0 to 5 Years) and At-Risk Patients (6 to 49) Years) (2 of 2 - PCV) 11/04/2016 11/04/2015, 05/06/2010, 10/03/2009 Mammogram 08/08/2021 08/08/2019, 09/21/2017 Depression Screening 12/28/2024 12/29/2023, 12/29/19 24 SDOH Screening 12/28/2024 12/29/2023 Tobacco Screening 01/08/2026 01/08/2025 Pap Smear 03/09/2026 03/09/2023, 11/15/2019 Zoster Vaccines (1 of 2) 2026 Lipid Panel 08/06/2027 08/06/2022, 2 06/2022, 12/12/2020, Additional history exists Cervical Cancer Screening 03/09/2028 HPV/Cotest 03/09/2028 03/09/2023, 06/0 04/2023, 11/15/2019, Additional history exists DTaP/Tdap/Td Vaccines (3 - Td or Tdap) 01/12/2032 01/11/2022, 03/05/2010 RSV Patients and Patients Aged 60 years or older (1 - 1-dose 75+ series) 2051 COVID-19 Vaccine Completed 06/15/2024, , 01/26/2022, Additional history exists Influenza Vaccine Completed 06/15/2024, , 06/29/2022, Additional history exists HIB Vaccines Aged Out No longer eligi ble based on patient's age to complete this topic HPV Vaccines Aged Out No longer eligi ble based on patient's age to complete this topic Hepatitis A Vaccines Aged Out No long er eligible based on patient's age to complete this topic IPV Vaccines Aged Out No longer eligi ble based on patient's age to complete this topic Meningococcal Vaccine Aged Out No carmen kris eligible based on patient's age to complete this topic RSV under 20 months Aged Out No longe r eligible based on patient's age to complete this topic Rotavirus Vaccines Aged Out No longer eligible based on patient's age to complete this topic Procedures Procedure Name Priority Date/Time Associated Diagnosis Comments POCT RAPID COVID ANTIGEN Routine 01/08/2025 3:26 PM EDT Acute cough POCT INFLUENZA A Routine 01/08/2025 3:25 PM EDT Acute cough POCT INFLUENZA B Routine 01/08/2025 3:24 PM EDT Acute cough HPV GENOTYPES 16,18/45 Routine 03/09/2023 10:26 AM EDT IMAGE-GUIDED PAP W/AGE BASED SCR,W/CT/NG/TRICH Routine 03/09/2023 10:26 AM EDT Encounter for Pap smear of cervix with HPV DNA cotesting LIPID PANEL, STANDARD Routine 08/06/2022 9:36 AM EDT HM MAMMOGRAPHY Routine 08/08/2019 from Last 3 Months or Most Recently Relevant to Health Maintenance Results * POCT Rapid Covid-19 BinaxNOW (01/08/2025 3:26 PM EDT) [facility] Rapid COVID Ag Negative QC Media Lot # [id number] Lot# Expiration Date Swab 01/08/2025 3:26 PM EDT Mady Walters MD POINT OF CARE TEST ENTER/ED IT ORDERABLES Final Result * POCT Rapid Influenza A OSOM (01/08/2025 3:25 PM EDT) [facility] Rapid Influenza A Ag Negative Negative, Indeterminate QC Media Lot # [id number] Lot# Expiration Date ,025 Comment:controls passed Swab Nasopharyngeal structure / Unknown 01/08/2025 3:25 PM EDT Mady Walters MD POINT OF CARE TEST ENTER/ED IT ORDERABLES Final Result * POCT Rapid Influenza B OSOM (01/08/2025 3:24 PM EDT) [facility] Rapid Influenza B Ag Negative Negative, Indeterminate QC Media Lot # [id number] Lot# Expiration Date ,025 Comment:controls passed Swab 01/08/2025 3:24 PM EDT Mady Walters MD POINT OF CARE TEST ENTER/ED IT ORDERABLES Final Result * (ABNORMAL) Image-Guided Pap with Age-Based Screening??with CT/NG,??Trichomonas (03/09/2023 10:26 AMEDT) Comment [employer] Comment: This order for age-based cervical cancer and STI screening follows ACOG guidelines(PB 168, 140, RGH603). See individual assays for performing site location. Clinical Information: ABNORMAL PAP [id number] HPV DETECTED C [employer] LMP: NONE GIVEN Extreme [employer] Prev. PAP: NONE GIVEN Extreme Reacht Prev. BX: NONE GIVEN [employer] SOURCE: Cervix Comic [employer] Statement Of Adequacy: Comic [employer] Comment: Satisfactory for evaluation. Endocervical/transformation zone component present. Interpretation/Re sult: Negative for intraepithelial lesion or malignancy. Extreme Reacht Infection Shift in vaginal cari suggestive of bacterial vaginosis. [employer] COMMENT: This Pap test has been evaluated with computer assisted technology. Comic Rocket Heel Layer: Aydin FileLife Comment: SXA, CT(ASCP) CT screening location: [address] ??[address] Review Heel Layer: Extreme Reacht Comment: KF, CT(ASCP) CT screening location: [address] ??[address] (Always Message) Que Kazeont Comment: EXPLANATORY NOTE: The Pap is a screening test for cervical cancer. It is not a diagnostic test and is subject to false negative and false positive results. It is most reliable when a satisfactory sample, regularly obtained, is submitted with relevant clinical findings and history, and when the Pap result is evaluated along with historic and current clinical information. HPV nRNA E6/E7 Detected(A) Not Detected [employer] Comment: Methodology: Square Dance Caller-Mediated Amplification This assay detects E6/E7 viral messenger RNA (mRNA) from 14 high-risk HPV types (16,18,31,33,35,39,45,51,52,56,58,59,66,68). Cervical sources are required for HPV testing. If a vaginal source from a patient who has had a total hysterectomy with removal of cervix was submitted, please contact the testing laboratory for alternative testing options. For additional information, please refer to http://[employer].Pixlee/faq/LNO786i4 (This link if provided for information/ educational purposes only.) Chlamydia trachomatis RNA, TMA, Urogenital NOT DETECTED NOT DETECTED [employer] Neisseria gonorrhoeae RNA, TMA, Urogenital NOT DETECTED NOT DETECTED Comic Rocket (Always Message) Que st [employer] Comment: The analytical performance characteristics of this assay, when used to test SurePath(TM) specimens have been determined by [employer]. The modifications have not been cleared or approved by the FDA. This assay has been validated pursuant to the CLIA regulations and is used for clinical purposes. For additional information, please refer to https://[employer].Pixlee/faq/RGL482 (This link is being provided for information/ educational purposes only.) Trichomonas vaginalis, QL, TMA, PAP Vial NOT DETECTED NOT DETECTED [employer]ocket Comment: The analytical performance characteristics of this assay have been determined by [employer]. The modifications have not been cleared or approved by the FDA. This assay has been validated pursuant to the CLIA regulations and is used for clinical purposes. For additional information, please refer to [email or web address].Pixlee/ faq/Trichomonastma (This link is being provided for information/ educational purposes only.) Cervix 03/09/2023 10:2 6 AM EDT 03/10/2023 8:53 AM EDT Kerry Gifford MD LAB CYTOLOGY ORDERABLES Final Result [facility] [address], [place] [address] [employer] [facility] [address] [place] [address] * (ABNORMAL) HPV Genotypes 16,18/45 (03/09/2023 10:26 AM EDT) Pathologist [facility] HPV 16 RNA DETECTED(A) NOT DETECTED [employer] [place] [employer] HPV 18/45 RNA NOT DETECTED NOT DETECTED [employer] [place] [employer] Comment: Methodology: Square Dance Caller Mediated Amplification Cervical sources are required for HPV testing. If a vaginal source from a patient who has had a total hysterectomy with removal of cervix was submitted, please contact the testing laboratory for alternative testing options. 03/09/2023 10:2 6 AM EDT 03/10/2023 8:53 AM EDT Kerry Gifford MD LAB CYTOLOGY ORDERABLES Final Result [facility] [address], [place] [address] [employer] [facility] [address] [place] [address] * (ABNORMAL) LIPID PANEL, STANDARD (08/06/2022 9:36 AM EDT) [facility] Chol/HDLC Ratio 4.2 <5.0 (calc) [facility] Cholesterol, Total 150 <200 mg/dL [facility] HDL Cholesterol 36(L) > OR = 50 mg/dL [facility] LDL Cholesterol 84 mg/dL (calc) [facility] Comment: Reference range: <100 ?? Desirable range <100 mg/dL for primary prevention; ?? <70 mg/dL for patients with CHD or diabetic patients ?? with > or = 2 CHD risk factors. ?? LDL-C is now calculated using the Marta ?? calculation, which is a validated novel method providing ?? better accuracy than the Friedewald equation in the ?? estimation of LDL-C. ?? Christiaon PELAEZ et al. SUSHIL. 2013;310(19): 1425-0877 ?? (http://education.[employer]iMedicine/faq/TPY572) Non-HDL Cholesterol 114 <130 mg/dL (calc) [facility] Comment: For patients with diabetes plus 1 major ASCVD risk ?? factor, treating to a non-HDL-C goal of <100 mg/dL ?? (LDL-C of <70 mg/dL) is considered a therapeutic ?? option. Triglycerides 198(H) <150 mg/dL CONVE RTED [facility]GAC[facility] 08/06/2022 9:36 AM EDT Kerry Gifford MD LAB BLOOD ORDERABLES Final Re sult [facility]VERT[facility]GAC[facility] * Mammography (08/08/2019) Mammogram performed Anatomical Region Laterality Modality Other us Historical Provider HEALTH MAINTENANCE Final Result from Last 3 Months or Most Recently Relevant to Health Maintenance Insurance [place] [address] [place] [phone] [facility] STANDARD Care Teams Dev Ops Engineer Relationship Specialty Start Date End Date Kerry Gifford MD [address] [place] [address] ERNESTO Kendrick [address] PCP - General Family Medicine 10/03/18
--- OUTSIDE RECORDS SUMMARY | 2025-01-08 17:31 | XMS_ITS | Encounter Summary ---
Author Organization [employer] Address [address] [facility] 7 [place] [address] Care Team Providers Care Vocational Nurse Name Role Phone Kerry Gifford MD Primary Care Provider [phone] Reason for Visit * Reason Comments Med Refill Encounter Details Date Type Department Care Team ([facility] st Contact Info) Description 01/14/2023 Refill [facility] [address] [place] [address] Bob Landa MD [address] [place] [address] Chronic pain syndrome Social History Tobacco Use [...] suspected to have Coronavirus/COVID-19? No / Unsure 01/06/2023 9:16 AM EDT documented as of this encounter Plan of Treatment Upcoming Encounters Date Type Department Care Team (Late st Contact Info) Description 01/15/2025 2:30 PM EDT Clinical Support [facility] [address] [place] [address] Bettie Hollins RN [address] [place] [address] 02/26/2025 10:45 AM EDT Office Visit [facility] [address] [place] [address] Kerry Gifford MD [address] [place] [address] documented as of this encounter Visit Diagnoses Diagnosis Chronic pain syndrome documented in this encounter Additional Health Concerns Assessment Noted Time PHQ-9 Depression Total Score: 2 10/13/19 23 9:25 AM EST documented as of this encounter Care Teams Vocational Nurse Relationship Specialty Start Date End Date Kerry Gifford MD [address] [place] [address] PCP - General Family Medicine 10/03/18 documented as of this encounter
--- OUTSIDE RECORDS SUMMARY | 2025-01-08 17:31 | XMS_ITS | Encounter Summary ---
Author Organization [employer] Address [address] [facility] 7 [place] [address] Care Team Providers Care Home And Family Living Professor Name Role Phone Kerry Gifford MD Primary Care Provider [phone] Reason for Visit * Reason Onset Date Comments PT1 02/02/2024 Encounter Details Date Type Department Care Team ([facility] st Contact Info) Description 02/02/2024 Telephone [facility] MEDICINE [address] [place] [address] Kerry Gifford MD [address] [place], [place] [id number] PT1 Social History Tobacco Use Types Packs/Day Years [...] encounter Miscellaneous Notes * Telephone Encounter - Tatyana Acharya - 02/02/2024 4:19 PM EDT PT-1 submitted for patient. They will receive a letter of approval or denial in the mail. * Telephone Encounter - Paradise Morin - 02/02/2024 11:47 AM EDT Patient calling requesting renewal PT1 Home Address verified: Y/N: Yes Provider name or facility name: [facility] Facility Address: [address] [facility] Escort needed: Y/N: Yes Do you have a wheelchair: Y/N: No If yes- Manual or electric: n/a Visits: (amount of visits) ( x monthly, weekly, daily) documented in this encounter Plan of Treatment Upcoming Encounters Date Type Department Care Team ([facility] st Contact Info) Description 01/15/2025 2:30 PM EDT Clinical Support [facility] MED & PEDS [address] [facility] [place] [address] Bettie Hollins, [place] [address] [facility] [place] [address] 02/26/2025 10:45 AM EDT Office Visit [facility] MED & PEDS [address] [place] [address] Kerry Gifford MD [address] [place] [address] documented as of this encounter Visit Diagnoses Not on filedocumented in this encounter Additional Health Concerns Assessment Noted Time PHQ-9 Depression Total Score: 2 12/29/19 24 11:00 AM EDT documented as of this encounter Care Teams Home And Family Living Professor Relationship Specialty Start Date End Date Kerry Gifford MD [address] [place] [address] PCP - General Family Medicine 10/03/18 documented as of this encounter
--- OUTSIDE RECORDS SUMMARY | 2025-01-08 17:31 | XMS_ITS | Encounter Summary ---
Author Organization [email or web address] Address [address] [facility] 7 [place] [address] Care Team Providers Care Lpn Home Health Name Role Phone Kerry Gifford MD Primary Care Provider [phone] Reason for Visit * Reason Comments Med Refill Encounter Details Date Type Department Care Team ([facility] Contact Info) Description 11/21/2022 Refill [facility] MED & PEDS [address] [place] [address] Kerry Gifford MD [address] [place] [address] Chronic pain syndrome Social History Tobacco Use Types Packs/Day Years Used Date Smoking Tobacco: Former Cigarettes 1.5 22 Alcohol Use Standard Drinks/Week Comments Never [...] suspected to have Coronavirus/COVID-19? No / Unsure 11/04/2022 9:15 AM EST documented as of this encounter Plan of Treatment Upcoming Encounters Date Type Department Care Team (Late st Contact Info) Description 01/15/2025 2:30 PM EDT Clinical Support [facility] MED & PEDS [address] [place] [address] Bettie Hollins RN [address] [place] [address] 02/26/2025 10:45 AM EDT Office Visit [facility] MED & PEDS [address] [place] [address] Kerry Gifford MD [address] [place] [address] documented as of this encounter Visit Diagnoses Diagnosis Chronic pain syndrome documented in this encounter Additional Health Concerns Assessment Noted Time PHQ-9 Depression Total Score: 2 10/13/19 23 9:25 AM EST documented as of this encounter Care Teams Lpn Home Health Relationship Specialty Start Date End Date Kerry Gifford MD [address] [place] [address] PCP - General Family Medicine 10/03/18 documented as of this encounter
--- OUTSIDE RECORDS SUMMARY | 2025-01-08 17:31 | XMS_ITS | Encounter Summary ---
Author Organization [employer] Address [address] [facility] 7 [place] [address] Care Team Providers Care Composing Room Machinist Name Role Phone Kerry Gifford MD Primary Care Provider [phone] Reason for Visit * Reason Onset Date Comments Med Refill 05/23/2024 Encounter Details Date Type Department Care Team ([facility] st Contact Info) Description 05/23/2024 Telephone [facility] MEDICINE [address] [place] [address] Kerry Gifford MD [address] [place], [place] [id number] Med Refill Social History Tobacco Use Types [...] encounter Miscellaneous Notes * Telephone Encounter - Gary Jensen - 05/23/2024 10:10 AM EDT TC from pt requesting medication refill. Medications needing refill: oxyCODONE (Roxicodone) 15 MG immediate release tablet To be sent to: [facility] documented in this encounter Plan of Treatment Upcoming Encounters Date Type Department Care Team ([facility] st Contact Info) Description 01/15/2025 2:30 PM EDT Clinical Support [facility] MED & PEDS [address] [place] [address] Bettie Hollins RN [address] [place] [address] 02/26/2025 10:45 AM EDT Office Visit [facility] MED & PEDS [address] [place] [address] Kerry Gifford MD [address] [place] [address] documented as of this encounter Visit Diagnoses Not on filedocumented in this encounter Additional Health Concerns Assessment Noted Time PHQ-9 Depression Total Score: 2 12/29/19 24 11:00 AM EDT documented as of this encounter Care Teams Composing Room Machinist Relationship Specialty Start Date End Date Kerry Gifford MD [address] [place] [address] PCP - General Family Medicine 10/03/18 documented as of this encounter
--- OUTSIDE RECORDS SUMMARY | 2025-01-08 17:31 | XMS_ITS | Encounter Summary ---
Author Organization [employer] Address [address] [facility] [address] [place] [address] Care Team Providers Care Hot Dimpling Machine Operator Name Role Phone Kerry Gifford MD Primary Care Provider [phone] Encounter Details Date Type Department Care Team (Late st Contact Info) Description 08/17/2022 Abstract [facility] MED & PEDS [address] [place] [address] ProviderBarbara MD Social History Tobacco Use Types Packs/Day Years Used Date Smoking Tobacco: Never Assessed Comments Unknown Sex and Gender Information Value [...] Description 01/15/2025 2:30 PM EDT Clinical Support [facility] MED & PEDS [address] [place] [address] Bettie Hollins, [place] [address] [place] [address] 02/26/2025 10:45 AM EDT Office Visit [facility] MED & PEDS [address] [place] [address] Kerry Gifford MD [address] [place] [address] documented as of this encounter Procedures Procedure Name Priority Date/Time Associated Diagnosis Comments PAP/HPV Routine 11/15/2019 MAMMOGRAPHY Routine 08/08/2019 MAMMOGRAPHY Routine 09/21/2017 documented in this encounter Results * Pap Smear (11/15/2019) Pap smear performed Historical Provider HEALTH MAINTENANCE Final Result * Mammography (08/08/2019) Mammogram performed Anatomical Region Laterality Modality Other [facility] Provider HEALTH MAINTENANCE Final Result * Mammography (09/21/2017) Mammogram performed Anatomical Region Laterality Modality Other [facility] Provider HEALTH MAINTENANCE Final Result documented in this encounter Visit Diagnoses Not on filedocumented in this encounter Care Teams Hot Dimpling Machine Operator Relationship Specialty Start Date End Date Kerry Gifford MD [address] [place] [address] PCP - General Family Medicine 10/03/18 documented as of this encounter
[2025-01-08 18:37] LABS: MANUAL DIFF FLAG NO
[2025-01-08 18:43] LABS: Basophils Percent Auto 0.6 % (0-2); Eosinophils Absolute Auto 0.2 X10*3/uL (0.0-0.4); Eosinophils Percent Auto 2.3 % (0-4); Hemoglobin 12.8 g/dl (12.0-16.0); Imm Gran Abs Auto 0.01 X10*3/uL (0.00-0.03); Imm Gran Pct Auto 0.1 % (0.0-0.4); Lymphocytes Absolute Auto 3.3 X10*3/uL (1.2-4.9); Lymphocytes Percent Auto 47.3 % (20-40); Mean Corpuscular HGB Conc 32.8 g/dl (31.0-35.0); Mean Corpuscular Hemoglobin 33.2 pg (27.0-33.0); Mean Platelet Volume 9.2 fL (9.4-12.3); Monocytes Absolute Auto 0.4 X10*3/uL (0.1-1.2); Neutrophils Absolute Auto 3.1 x10*3/uL (2.0-8.3); Neutrophils Percent Auto 44.7 % (45-73); Platelet Count 243 X10*3/uL (160-400); Red Blood Count 3.86 X10*6/uL (4.20-5.50); Red Cell Distribution Width 13.5 % (11.0-16.0)
== END 2025-01-08 14:23 | disposition home or self-care (01) ==
LOC: HO.CHCLDS 14:22
PROVIDERS: Visit Provider Internal Medicine
DX: R05.1 Acute cough (principal)
CPT/HCPCS: 36415; 85025

== ENCOUNTER 2025-02-28 08:47 | Outpatient (REF) | payer MEDICARE, MEDICAID, SELFPAY ==
[2025-02-28 10:44] LABS: MANUAL DIFF FLAG NO
[2025-02-28 10:47] LABS: Basophils Percent Auto 0.3 % (0-2); Eosinophils Absolute Auto 0.2 X10*3/uL (0.0-0.4); Hematocrit 39.5 % (37.0-47.0); Hemoglobin 13.1 g/dl (12.0-16.0); Imm Gran Abs Auto 0.02 X10*3/uL (0.00-0.03); Imm Gran Pct Auto 0.2 % (0.0-0.4); Lymphocytes Absolute Auto 2.7 X10*3/uL (1.2-4.9); Lymphocytes Percent Auto 31.5 % (20-40); Mean Corpuscular HGB Conc 33.2 g/dl (31.0-35.0); Mean Corpuscular Hemoglobin 33.8 pg (27.0-33.0); Mean Corpuscular Volume 101.8 fL (80.0-98.0); Mean Platelet Volume 9.4 fL (9.4-12.3); Monocytes Absolute Auto 0.4 X10*3/uL (0.1-1.2); Monocytes Percent Auto 4.4 % (2-11); Neutrophils Absolute Auto 5.3 x10*3/uL (2.0-8.3); Neutrophils Percent Auto 61.6 % (45-73); Platelet Count 219 X10*3/uL (160-400); Red Blood Count 3.88 X10*6/uL (4.20-5.50); Red Cell Distribution Width 12.9 % (11.0-16.0); White Blood Count 8.7 X10*3/uL (4.8-10.8)
[2025-02-28 11:23] LABS: Alanine Aminotransferase 6 U/L (0-31); Albumin Level 3.6 g/dL (3.5-5.0); Alkaline Phosphatase 72 U/L (39-117); Anion Gap 10 (12-20); Aspartate Amino Transferase 20 U/L (5-31); Bilirubin Direct 0.1 mg/dL (0.0-0.5); Bilirubin Total 0.3 mg/dL (0.0-1.0); Blood Urea Nitrogen 16 mg/dL (9-16); Calcium 8.5 mg/dL (8.4-10.2); Carbon Dioxide 27 mmol/L (22-29); Chloride 110 mmol/L (96-108); Cholesterol 146 mg/dL (<200); Estimated Glomerular Filt Rate > 60; Glucose Random 88 mg/dL (60-115); HDL Cholesterol 33 mg/dL (>40); LDL Cholesterol Calculated 76 mg/dL (<100); Potassium 3.9 mmol/L (3.3-5.1); Sodium 143 mmol/L (135-145); TSH reflex Free T4 0.22 uIU/mL (0.32-4.0); Total Protein 6.3 g/dL (6.5-8.0); Triglycerides 188 mg/dL (<150)
[2025-02-28 11:38] LABS: Folate 3.9 ng/mL (> or = 4.0); Vitamin B12 235 pg/mL (200-900)
[2025-02-28 12:06] LABS: Free T4 (Free Thyroxine) 1.28 ng/dL (0.71-1.85)
== END 2025-02-28 08:48 | disposition home or self-care (01) ==
LOC: HO.CHCLDS 08:47
PROVIDERS: Internal Medicine; PCP Pediatrics; Referring Provider Nurse Practitioner Psychiatric/Mental Health; Visit Provider Pediatrics
DX: E89.0 Postprocedural hypothyroidism (principal); E78.2 Mixed hyperlipidemia; D75.89 Other specified diseases of blood and blood-forming organs
CPT/HCPCS: 36415; 80053; 80061; 82248; 82607; 82746; 84439; 84443; 85025